=== PATIENT | male | born 1985 | race African-American/Black ===

== ENCOUNTER 2023-10-27 08:52 | Emergency (ER) | payer OTHER ==
[~2023-10-27] VITALS: Ht 175.3 cm; Wt 131.0 kg
[2023-10-27 09:01] VITALS: O2SAT 100
[2023-10-27] MEDS ORDERED: IBUPROFEN 800MG TABLET PO ONE (09:30)
[2023-10-27] MEDS: IBUPROFEN 400MG TABLET PO NR (09:44)
[2023-10-27] MEDS ORDERED: IBUP-2030 MT (11:44)
[2023-10-27] MEDS ORDERED: HYDR-4009 MT (11:44)
[2023-10-27] MEDS ORDERED: HYDR-4350 MT (11:49)
[2023-10-27 12:06] VITALS: BP 134/77; PULSE 84; RESP 16; TEMP 98
== END 2023-10-27 12:58 | disposition home or self-care (01) ==
LOC: ER 09:18
DX: S82.142A Displaced bicondylar fracture of left tibia, initial encounter for closed fracture (principal); W18.39XA Other fall on same level, initial encounter; Y93.89 Activity, other specified; Y92.89 Other specified places as the place of occurrence of the external cause; Y99.8 Other external cause status
CPT/HCPCS: 73562; 99283; Z7610; L1830